=== PATIENT | male | born 1970 | race Caucasian/White ===

== ENCOUNTER → 2018-12-25 11:22 | Outpatient (CLI) | payer SELFPAY | PROVIDERS: Visit Provider Physician Assistant | DX: J02.9 Acute pharyngitis, unspecified (principal) | CPT/HCPCS: 87070 ==

== ENCOUNTER → 2024-05-31 10:38 | Outpatient (CLI) | payer SELFPAY ==
[2024-05-31 11:14] LABS: Hemoglobin 20.1 g/dL (13.5-17.5)
[2024-05-31 11:44] LABS: 585 Gram Check PASS; Amount Collected in g 585 g; Amount Collected mL calc 508 mL; Dizziness Y; Patient Weight <110 lb NO; Postdiastolic BP 76 mmHg; Postsystolic BP 114 mmHg; Prediastolic 97 mmHg; Presystolic 158 mmHg; Pulse 81 bpm; Site of phlebotomy Left antecubital; Swelling N; Temperature 97.7; Therapeutic Phleb Consent Chec Consent signed @ reg; Therapeutic Phleb Start Time 1130; Therapeutic Phleb Stop Time 1145; Zero Check Sebra Scale PASS
== END ==
PROVIDERS: Referring Provider Nurse Practitioner; Visit Provider Nurse Practitioner
DX: E78.5 Hyperlipidemia, unspecified (principal); R89.1 Abnormal level of hormones in specimens from other organs, systems and tissues; L70.9 Acne, unspecified; I10 Essential (primary) hypertension
CPT/HCPCS: 36415; 85014; 85018; 99195